=== PATIENT | male | born 1940 | race Caucasian/White ===

== ENCOUNTER 2016-11-17 14:16 | Emergency (ER) | payer OTHER ==
--- NOTE | 2016-11-17 14:37 | EDPHY ---
H & P Stated Complaint: CP sob & dizzy for 3 wks Time Seen by Provider: 11/17/16 14:33 HPI/ROS: HPI CHIEF COMPLAINT: [ ] HISTORY OF PRESENT ILLNESS: [Need 4: Location, Duration, Severity, Quality, Context, Timing Modifying Factors, Associated S&S] Past Medical History: Past Surgical History: Social History: Family History: ROS REVIEW OF SYSTEMS: A comprehensive 10 point review of systems is otherwise negative aside from elements mentioned in the history of present illness. Exam Constitutional triage nursing summary reviewed, vital signs reviewed, awake/ alert. Eyes normal conjunctivae and sclera, EOMI, PERRLA. HENT normal inspection, atraumatic, moist mucus membranes, no epistaxis, neck supple/ no meningismus, no raccoon eyes. Respiratory clear to auscultation bilaterally, normal breath sounds, no respiratory distress, no wheezing. Cardiovascular rate normal, regular rhythm, no murmur, no edema, distal pulses normal. Gastrointestinal soft, non-tender, no rebound, no guarding, normal bowel sounds, no distension, no pulsatile mass. Genitourinary no CVA tenderness. Musculoskeletal no midline vertebral tenderness, full range of motion, no calf swelling, no tenderness of extremities, no meningismus, good pulses, neurovascularly intact. Skin pink, warm, & dry, no rash, skin atraumatic. Neurologic awake, alert and oriented x 3, AAOx3, moves all 4 extremities equally, motor intact, sensory intact, CN II-XII intact, normal cerebellar, normal vision, normal speech. Psychiatric normal mood/affect. Heme/Lymph/Immune no lymphadenopathy. Differential Diagnosis: Medical Decision Making: Re-evaluation: Source: Patient - Personal History Current Tetanus/Diphtheria Vaccine: Yes Current Tetanus Diphtheria and Acellular Pertussis (TDAP): Yes Tetanus Vaccine Date: < 10 years - Medical/Surgical History Hx Asthma: No Hx Chronic Respiratory Disease: No Hx Diabetes: Yes Hx Cardiac Disease: Yes Hx Renal Disease: No Hx Cirrhosis: No Hx Alcoholism: No Hx HIV/AIDS: No Hx Splenectomy or Spleen Trauma: No Other PMH: BACK SURGERIES, HTN, NERVE DAMAGE, CHRONIC UTIS. neurogenic bladder , DAVI, CAD. DM, spinal stenosis - Social History Smoking Status: Former smoker Constitutional: Initial Vital Signs Temperature (C) 36.5 C 11/17/16 14:24 Heart Rate 85 11/17/16 14:24 Respiratory Rate 16 07/18/17 14:24 Blood Pressure 154/94 H 11/17/16 14:24 O2 Sat (%) 95 11/17/16 14:24 O2 Delivery Mode Room Air Allergies/Adverse Reactions: No Known Allergies Allergy (Verified 03/26/16 11:38) Home Medications: Medication Instructions Recorded Aspirin [Aspirin 81mg (*)] 162 mg PO DAILY 06/12/14 Lisinopril/Hctz 20/12.5MG 1 tab PO DAILY 06/12/14 [Zestoretic/Prinzide 20/12.5MG (*)] Metoprolol Succinate Xr [Toprol Xl 25 mg PO DAILY@18 06/12/14 25 mg (*)] Simvastatin 40 mg PO HS 06/12/14 glipiZIDE XL [Glucotrol Xl] 5 mg PO DAILY 06/12/14 Diazepam [Valium 5 MG (*)] 5 mg PO DAILY PRN 03/26/16 Pantoprazole Sodium [Protonix 40mg 40 mg PO DAILY@03/26/16 (*)] Sulfamethox/Tmp 800/160 mg 1 tab PO BID PRN 03/26/16 [Bactrim DS] oxyCODONE IR [Oxycodone Ir (*)] 15 mg PO BID@03/26/16 Acetaminophen [Tylenol 325mg (*)] 650 mg PO Q4HRS PRN #0 tab 03/27/16 Departure - Departure Referrals: Milan Muir MD [Primary Care Provider] - As per Instructions
[2016-11-17] MEDS ORDERED: NS 1,000 ML IV ONE (14:38)
--- NOTE | 2016-11-17 14:42 | CPEKG ---
Heart Rate: 93 RR Interval: 645 P-R Interval: 176 QRSD Interval: 86 QT Interval: 348 QTC Interval: 433 P [place]: 74 QRS [place]: 22 T Wave [place]: 66 EKG Severity - BORDERLINE ECG - EKG Impression: SINUS RHYTHM EKG Impression: PROBABLE LEFT ATRIAL ABNORMALITY Electronically Signed By: Denny López 17-Nov-2016 14:47:16
[2016-11-17 14:46] LABS: % IMMATURE GRANULYOCYTES 0.1 % (0.0-1.1); ABSOLUTE IMMATURE GRANULOCYTES 0.01 10^3/uL (0.00-0.10); ADD DIFF? NO; ADD MORPH? NO; ADD SCAN? NO; ATYPICAL LYMPHOCYTE FLAG 10 (0-99); FRAGMENT RBC FLAG 0 (0-99); HEMATOCRIT 43.5 % (40.0-51.0); HEMOGLOBIN 14.9 g/dL (13.7-17.5); LEFT SHIFT FLG 0 (0-99); LIPEMIA HEMOLYSIS FLAG 90 (0-99); MEAN CELL HEMOGLOBIN 31.3 pg (27.9-34.1); MEAN CELL HEMOGLOBIN CONCENTR. 34.3 g/dL (32.4-36.7); MEAN CELL VOLUME 91.4 fL (81.5-99.8); MEAN PLATELET VOLUME 9.8 fL (8.7-11.7); PLATELET CLUMPS FLAG 0 (0-99); PLATELET COUNT 236 10^3/uL (150-400); RED BLOOD CELL COUNT 4.76 10^6/uL (4.40-6.38); RED CELL DISTRIBUTION WIDTH 13.2 % (11.5-15.2)
[2016-11-17] MEDS ORDERED: ASPIRIN 81 MG CHEWABLE TAB PO ONE (14:46)
--- NOTE | 2016-11-17 14:46 | EDPHY ---
H & P Time Seen by Provider: 11/17/16 14:33 HPI/ROS: CHIEF COMPLAINT: Chest tightness HISTORY OF PRESENT ILLNESS: Patient had cardiac stenting [address] Russell and tells me that over the past 3 weeks the symptoms that preceded his stent have all reoccurred. He describes increasing fatigue and being tired. He feels dizzy frequently with a feeling of presyncope when he walks and actually fell down a couple weeks ago. He is short of breath worse at night and has had some intermittent chest tightness last week that resolved with 2 nitroglycerin. None for the last 5 days. Primarily here in the emergency department he is concerned that he was having chest tightness last week but now really feels just very tired and fatigued. Not associated with any focal weakness or headache. Symptoms moderate. 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 No dysuria or hematuria. A comprehensive 10 point review of systems is otherwise negative aside from elements mentioned in the history of present illness. PAST MEDICAL HISTORY: Coronary stenting as noted above, 3 back surgeries, hypertension, sleep apnea, diabetes, spinal stenosis. Catheterization report by Dr. Russell reviewed by myself from 03/30/15, negative angiogram for new stenosis. Social history: Primary care Otis Muir, here with , nonsmoker General Appearance: Alert and conversant, cooperative. Eyes: No scleral icterus. ENT, Mouth: Normal mucous membranes. Respiratory: Normal respiratory effort, breath sounds equal, lungs are clear to auscultation. Cardiovascular: Regular rate and rhythm. No murmur. Gastrointestinal: Abdomen is soft and non tender. Neurological: Alert and oriented, conversant, follows commands. Normal speech. Able to move all extremities, sensation and sensation intact to light touch. Skin: Warm and dry, no rashes. Musculoskeletal: No peripheral edema and no joint swelling. No calf tenderness. Psychiatric: Not agitated. Emergency Department course/MDM: Symptoms concerning for being identical to his pre stent symptoms from a decade ago. EKG does not show acute changes. Oral aspirin, chest x-ray and labs to include troponin and D-dimer. Pretest clinical likelihood of pulmonary embolism is low. 1555: Discussed with Dr. Russell. Recommends discharge with office follow-up in regards to his cardiac risk. Urinalysis reviewed and is positive for white blood cells and bacteria. The patient tells me that he typically gets urinary tract infections without symptoms, and will often dipstick test his urine at home. Usually he is dipstick negative. When he is positive his primary care physician will prescribe him Bactrim which he tolerates well and always seems to clear it up. In reviewing his previous urine cultures including 06/12/2014 and 05/07/2014 he has had E coli which is resistant to cephalosporins and Macrodantin but is sensitive to Bactrim. Prescription for Bactrim, urine culture sent. Smoking Status: Former smoker Constitutional: Initial Vital Signs Temperature (C) 36.5 C 11/17/16 14:24 Heart Rate 85 11/17/16 14:24 Respiratory Rate 16 11/17/16 14:24 Blood Pressure 154/94 H 11/17/16 14:24 O2 Sat (%) 95 11/17/16 14:24 O2 Delivery Mode Room Air Allergies/Adverse Reactions: No Known Allergies Allergy (Verified 03/26/16 11:38) Home Medications: Medication Instructions Recorded Aspirin [Aspirin 81mg (*)] 162 mg PO DAILY 06/12/14 Lisinopril/Hctz 20/12.5MG 1 tab PO DAILY 06/12/14 [Zestoretic/Prinzide 20/12.5MG (*)] Metoprolol Succinate Xr [Toprol Xl 25 mg PO DAILY@18 06/12/14 25 mg (*)] Simvastatin 40 mg PO HS 06/12/14 glipiZIDE XL [Glucotrol Xl] 5 mg PO DAILY 06/12/14 Diazepam [Valium 5 MG (*)] 5 mg PO DAILY PRN 03/26/16 Pantoprazole Sodium [Protonix 40mg 40 mg PO DAILY@03/26/16 (*)] Sulfamethox/Tmp 800/160 mg 1 tab PO BID PRN 03/26/16 [Bactrim DS] oxyCODONE IR [Oxycodone Ir (*)] 15 mg PO BID@03/26/16 Acetaminophen [Tylenol 325mg (*)] 650 mg PO Q4HRS PRN #0 tab 03/27/16 Sulfamethox/Tmp 800/160 mg 1 tab PO BID@1000,2200 #20 tab 11/17/16 [Bactrim Ds] Medical Decision Making - Diagnostics EKG Interpretation: 12-lead EKG interpreted by me; official reading is in trace master. My interpretation is sinus rhythm rate 93 with left atrial abnormality and no acute ischemic changes. Imaging Results: Imaging Impressions Chest X-Ray 11/17/16 14:42 Impression: Normal chest. Differential Diagnosis: Differential diagnosis considered for chest pain including but not limited to myocardial ischemia, aortic dissection, pericarditis, pulmonary embolus, chest wall pain, pleural inflammation and pulmonary infectious causes. - Data Points Laboratory Results: Laboratory Results 11/17/16 14:38 11/17/16 14:38 11/17/16 11/17/16 11/17/16 15:46 14:38 14:38 WBC RBC Hgb Hct MCV MCH MCHC RDW Plt Count MPV Neut % (Auto) Lymph % (Auto) [place] % (Auto) Eos % (Auto) Baso % (Auto) Nucleat RBC Rel Count Absolute Neuts (auto) Absolute Lymphs (auto) Absolute Monos (auto) Absolute Eos (auto) Absolute Basos (auto) Absolute Nucleated RBC Immature Gran % Immature Gran # D-Dimer 0.36 ug/mLFEU ug/mLFEU (0.00-0.50) Sodium 140 mEq/L mEq/L (134-144) Potassium 4.3 mEq/L mEq/L (3.5-5.2) Chloride 103 mEq/L mEq/L (97-110) Carbon Dioxide 22 mEq/l mEq/l (22-31) Anion Gap 15 mEq/L mEq/L (8-16) BUN 22 mg/dL mg/dL (7-23) Creatinine 1.1 mg/dL mg/dL (0.7-1.3) Estimated GFR > 60 Glucose 183 mg/dL H mg/dL (70-100) Calcium 9.9 mg/dL mg/dL (8.5-10.4) Troponin I < 0.012 ng/mL ng/mL (0-0.034) Urine Color PALE YELLOW Urine Appearance HAZY Urine pH 5.0 (5.0-7.5) Ur Specific [place] 1.009 (1.002-1.030) Urine Protein NEGATIVE (NEGATIVE) Urine Ketones NEGATIVE (NEGATIVE) Urine Blood 2+ H (NEGATIVE) Urine Nitrate NEGATIVE (NEGATIVE) Urine Bilirubin NEGATIVE (NEGATIVE) Urine Urobilinogen NEGATIVE EU EU (0.2-1.0) Ur Leukocyte Esterase 2+ H (NEGATIVE) Urine RBC 3-5 /hpf H /hpf (0-3) Urine WBC 5-10 /hpf H /hpf (0-3) Ur Epithelial Cells TRACE /lpf /lpf (NONE-1+) Urine Bacteria TRACE /hpf H /hpf (NONE SEEN) Urine Mucus TRACE /lpf /lpf (NONE-1+) Urine Glucose NEGATIVE (NEGATIVE) 11/17/16 14:38 WBC 6.82 10^3/uL 10^3/uL (3.80-9.50) RBC 4.76 10^6/uL 10^6/uL (4.40-6.38) Hgb 14.9 g/dL g/dL (13.7-17.5) Hct 43.5 % % (40.0-51.0) MCV 91.4 fL fL (81.5-99.8) MCH 31.3 pg pg (27.9-34.1) MCHC 34.3 g/dL g/dL (32.4-36.7) RDW 13.2 % % (11.5-15.2) Plt Count 236 10^3/uL 10^3/uL (150-400) MPV 9.8 fL fL (8.7-11.7) Neut % (Auto) 60.8 % % (39.3-74.2) Lymph % (Auto) 25.2 % % (15.0-45.0) [place] % (Auto) 12.3 % % (4.5-13.0) Eos % (Auto) 0.9 % % (0.6-7.6) Baso % (Auto) 0.7 % % (0.3-1.7) Nucleat RBC Rel Count 0.0 % % (0.0-0.2) Absolute Neuts (auto) 4.14 10^3/uL 10^3/uL (1.70-6.50) Absolute Lymphs (auto) 1.72 10^3/uL 10^3/uL (1.00-3.00) Absolute Monos (auto) 0.84 10^3/uL H 10^3/uL (0.30-0.80) Absolute Eos (auto) 0.06 10^3/uL 10^3/uL (0.03-0.40) Absolute Basos (auto) 0.05 10^3/uL 10^3/uL (0.02-0.10) Absolute Nucleated RBC 0.00 10^3/uL 10^3/uL (0-0.01) Immature Gran % 0.1 % % (0.0-1.1) Immature Gran # 0.01 10^3/uL 10^3/uL (0.00-0.10) D-Dimer Sodium Potassium Chloride Carbon Dioxide Anion Gap BUN Creatinine Estimated GFR Glucose Calcium Troponin I Urine Color Urine Appearance Urine pH Ur Specific [place] Urine Protein Urine Ketones Urine Blood Urine Nitrate Urine Bilirubin Urine Urobilinogen Ur Leukocyte Esterase Urine RBC Urine WBC Ur Epithelial Cells Urine Bacteria Urine Mucus Urine Glucose Medications Given: Discontinued Medications Aspirin (Aspirin) 324 mg PO EDNOW ONE Stop: 11/17/16 14:39 Last Admin: 11/17/16 14:53 Dose: Not Given Aspirin (Aspirin) 324 mg PO EDNOW ONE Stop: 11/17/16 14:47 Last Admin: 11/17/16 15:03 Dose: 324 mg Sodium Chloride (Ns) 1,000 mls @ 0 mls/hr IV ONCE ONE; Wide Open PRN Reason: Protocol Stop: 11/17/16 14:39 Last Admin: 11/17/16 14:51 Dose: Not Given Departure - Departure Disposition: Home, Routine, Self-Care Clinical Impression: Fatigue Qualifiers: Fatigue type: unspecified Qualified Code(s): R53.83 - Other fatigue Urinary tract infection Qualifiers: Urinary tract infection type: acute cystitis Hematuria presence: without hematuria Qualified Code(s): N30.00 - Acute cystitis without hematuria Condition: Good Instructions: Urinary Tract Infection in Men (ED), Weakness (ED) Additional Instructions: Return for worsening symptoms. Your registered dental hygienist will call you for follow-up this week Referrals: Milan Muir MD [Primary Care Provider] - As per Instructions Rufino Russell MD [Medical Doctor] - As per Instructions Prescriptions: Sulfamethox/Tmp 800/160 mg [Bactrim Ds] 1 tab PO BID@1000,2200 #20 tab
[2016-11-17] MEDS: ASPIRIN 81 MG CHEWABLE TAB PO ONE ×2 (14:50→14:53)
[2016-11-17 15:07] LABS: ANION GAP 15 mEq/L (8-16); CALCIUM 9.9 mg/dL (8.5-10.4); CARBON DIOXIDE 22 mEq/l (22-31); CHLORIDE 103 mEq/L (97-110); CREATININE 1.1 mg/dL (0.7-1.3); GLOMERULAR FILTRATION RATE > 60; GLUCOSE 183 mg/dL (70-100); POTASSIUM 4.3 mEq/L (3.5-5.2); SODIUM 140 mEq/L (134-144)
[2016-11-17 15:17] LABS: TROPONIN I < 0.012 ng/mL (0-0.034)
[2016-11-17 16:02] LABS: COLOR PALE YELLOW; LEUKOCYTE ESTERASE,URINE 2+ (NEGATIVE); NITRITE,URINE NEGATIVE (NEGATIVE)
[2016-11-17 16:29] LABS: BACTERIA TRACE /hpf (NONE SEEN); MUCUS TRACE /lpf (NONE-1+)
[2016-11-17 16:37] VITALS: BP 140/90; PULSE 82; RESP 18; TEMP 98.1; O2SAT 94
== END 2016-11-17 16:37 | disposition home or self-care (01) ==
DX: N30.00 Acute cystitis without hematuria (principal); I10 Essential (primary) hypertension; E11.9 Type 2 diabetes mellitus without complications; B96.89 Other specified bacterial agents as the cause of diseases classified elsewhere; Z79.82 Long term (current) use of aspirin; Z87.891 Personal history of nicotine dependence; Z95.5 Presence of coronary angioplasty implant and graft

== ENCOUNTER 2016-11-30 15:16 | Emergency (ER) | payer OTHER ==
--- NOTE | 2016-11-30 15:28 | CPEKG ---
Heart Rate: 94 RR Interval: 638 P-R Interval: 212 QRSD Interval: 82 QT Interval: 372 QTC Interval: 466 P [place]: 61 QRS [place]: 5 T Wave [place]: 59 EKG Severity - ABNORMAL ECG - EKG Impression: SINUS RHYTHM EKG Impression: VENTRICULAR PREMATURE COMPLEX EKG Impression: CONSIDER POSTERIOR INFARCT Electronically Signed By: Nuria Zavala 30-Nov-2016 20:58:24
[2016-11-30 15:54] LABS: % IMMATURE GRANULYOCYTES 0.4 % (0.0-1.1); ABSOLUTE IMMATURE GRANULOCYTES 0.04 10^3/uL (0.00-0.10); ADD DIFF? NO; ADD MORPH? NO; ADD SCAN? NO; ATYPICAL LYMPHOCYTE FLAG 10 (0-99); FRAGMENT RBC FLAG 0 (0-99); HEMOGLOBIN 14.6 g/dL (13.7-17.5); LEFT SHIFT FLG 0 (0-99); LIPEMIA HEMOLYSIS FLAG 90 (0-99); MEAN CELL HEMOGLOBIN 30.6 pg (27.9-34.1); MEAN CELL VOLUME 90.1 fL (81.5-99.8); MEAN PLATELET VOLUME 9.9 fL (8.7-11.7); PLATELET CLUMPS FLAG 0 (0-99); PLATELET COUNT 221 10^3/uL (150-400); RED BLOOD CELL COUNT 4.77 10^6/uL (4.40-6.38); RED CELL DISTRIBUTION WIDTH 13.1 % (11.5-15.2)
--- NOTE | 2016-11-30 15:58 | EDPHY ---
H & P Stated Complaint: chest pain today, back pain chronic, bladder pain and dizziness since july Time Seen by Provider: 11/30/16 15:35 HPI/ROS: Chief Complaint: Lightheaded, short of breath, headache, hypertension HPI: 76-year-old male with a history of coronary artery disease and hypertension is complaining of a headache, lightheadedness, feeling flushed which started about 10:00 a.m. this morning. He states that last night he has head became feeling hot and had a mild headache. At that time his blood pressure was 180/90. He sat in his chair and felt better. This morning at 10: 00 a.m. he says his ankle started feeling numb and he felt like he was going to fall but did not. Again at noon his head started feeling flushed he felt some shortness of breath and some lightheadedness. At that time his blood pressure was 190/85. He has been compliant with his medications. Denies any substernal chest pain but has have a little bit left-sided chest pain and feels that he can not get catch his breath. He states he has been having worsening shortness of breath the last 3 or 4 months but for the last 2 days it is been worse to the point that he feels like he is unable to ever catch his breath. He is lightheaded. He is scheduled for a CT scan of his head today because he has been having dizziness but was unable to go to have it done. Denies any fevers or chills. Does have a history of chronic back pain for which when he has exacerbations of pain he has to straight cath. States at 1:30 p.m. this afternoon he self cath and had flow for about a minute. He then removed. An hour later he felt the urge to void again put in a catheter and had a 1 minutes 45 seconds. He has been having increasing urgency. No fevers or chills. No abdominal pain. No nausea or vomiting. ROS: 10 point Review of Systems is negative except as noted in the HPI. PMH: Coronary artery disease, hypertension, diabetes, chronic back pain Medications: Lisinopril/hydrochlorothiazide Simvastatin Metoprolol Glipizide Pantoprazole Aspirin could Oxycodone Allergies: Metformin Social History: No smoking, no alcohol, no recreational drug use Family History: Father had a CVA and at 72, also had diabetes. Mother at 76 for coronary artery disease. Physical Exam: Gen: Awake, Alert, anxious appearing HEENT: Nose: no rhinorrhea Eyes: PERRLA, EOMI Mouth: Moist mucosa Neck: Supple, no JVD Chest: nontender, lungs clear to auscultation Heart: S1, S2 normal, no murmur Abd: Soft, non-tender, no guarding Back: no CVA tenderness, no midline tenderness Ext: 1+ foot edema, non-tender Skin: no rash Neuro: CN II-XII intact, Sensation grossly intact, Strength 5/5 in bilateral upper and lower extremities - Personal History Current Tetanus Diphtheria and Acellular Pertussis (TDAP): Yes Tetanus Vaccine Date: < 10 years - Medical/Surgical History Hx Asthma: No Hx Chronic Respiratory Disease: No Hx Diabetes: Yes Hx Cardiac Disease: Yes Hx Renal Disease: No Hx Cirrhosis: No Hx Alcoholism: No Hx HIV/AIDS: No Hx Splenectomy or Spleen Trauma: No Other PMH: BACK SURGERIES, HTN, NERVE DAMAGE, CHRONIC UTIS. neurogenic bladder , DAVI, CAD. DM, spinal stenosis - Social History Smoking Status: Former smoker Constitutional: Initial Vital Signs Heart Rate 705 H 11/30/16 15:27 Respiratory Rate 18 11/30/16 15:27 Blood Pressure 175/81 H 11/30/16 15:27 O2 Sat (%) 97 11/30/16 15:27 O2 Delivery Mode Room Air Allergies/Adverse Reactions: metformin Allergy (Verified 11/30/16 15:26) Home Medications: Medication Instructions Recorded Aspirin [Aspirin 81mg (*)] 162 mg PO DAILY 06/12/14 Lisinopril/Hctz 20/12.5MG 1 tab PO DAILY 06/12/14 [Zestoretic/Prinzide 20/12.5MG (*)] Metoprolol Succinate Xr [Toprol Xl 25 mg PO DAILY@18 06/12/14 25 mg (*)] Simvastatin 40 mg PO HS 06/12/14 glipiZIDE XL [Glucotrol Xl] 5 mg PO DAILY 06/12/14 Diazepam [Valium 5 MG (*)] 5 mg PO DAILY PRN 03/26/16 Pantoprazole Sodium [Protonix 40mg 40 mg PO DAILY@03/26/16 (*)] oxyCODONE IR [Oxycodone Ir (*)] 15 mg PO BID@14,21 03/26/16 Acetaminophen [Tylenol 325mg (*)] 650 mg PO Q4HRS PRN #0 tab 03/27/16 Medical Decision Making - Diagnostics Imaging Results: Imaging Impressions Chest X-Ray 11/30/16 15:50 Impression: Negative chest. Imaging: I viewed and interpreted images myself ED Course/Re-evaluation: 76-year-old male with multiple complaints including some lightheadedness. Is some flushing. Some headache. All these are associated with his blood pressure being high. He has similar episodes in the past and admitted to this hospital in May and was seen here 2 weeks ago. Those workups were unremarkable. Today his blood pressure was 170 systolic here. His ECG is unremarkable. His blood work is negative. His urinalysis is negative. Patient states that when he had a similar episode in the past he was given Valium which brought him almost immediate relief. He has no focal neurologic deficits at this time. No central chest pain. Troponin is negative. He has no headache or any other findings suggestive of end-organ damage secondary to his hypertension. Blood pressure came down to 158 without treatment here. Will give small dose of Ativan here and reassess. At this time I do not see any findings to suggest that he needs further inpatient workup. He has an appoint with his urologist tomorrow. He is scheduled for a CT scan of his head later this week. He has no other headache or any other findings to indicate emergent CT scan at this point. If patient is improved and ambulating plan will be to discharge. He will follow up with Dr. Russell as an outpatient. He has been encouraged to return to the emergency department any time for any concerns. Patient is feeling better after Ativan. He has a negative workup at this time. Plan will be for discharge. He has an appointment with his urologist tomorrow. Will follow with primary care physician and his language interpreter for further evaluation of his hypertension. - Data Points Laboratory Results: Laboratory Results 11/30/16 15:45 11/30/16 15:45 11/30/16 11/30/16 11/30/16 16:50 15:45 15:45 WBC 10.48 10^3/uL H 10^3/uL (3.80-9.50) RBC 4.77 10^6/uL 10^6/uL (4.40-6.38) Hgb 14.6 g/dL g/dL (13.7-17.5) Hct 43.0 % % (40.0-51.0) MCV 90.1 fL fL (81.5-99.8) MCH 30.6 pg pg (27.9-34.1) MCHC 34.0 g/dL g/dL (32.4-36.7) RDW 13.1 % % (11.5-15.2) Plt Count 221 10^3/uL 10^3/uL (150-400) MPV 9.9 fL fL (8.7-11.7) Neut % (Auto) 76.7 % H % (39.3-74.2) Lymph % (Auto) 13.4 % L % (15.0-45.0) [place] % (Auto) 8.8 % % (4.5-13.0) Eos % (Auto) 0.3 % L % (0.6-7.6) Baso % (Auto) 0.4 % % (0.3-1.7) Nucleat RBC Rel Count 0.0 % % (0.0-0.2) Absolute Neuts (auto) 8.05 10^3/uL H 10^3/uL (1.70-6.50) Absolute Lymphs (auto) 1.40 10^3/uL 10^3/uL (1.00-3.00) Absolute Monos (auto) 0.92 10^3/uL H 10^3/uL (0.30-0.80) Absolute Eos (auto) 0.03 10^3/uL 10^3/uL (0.03-0.40) Absolute Basos (auto) 0.04 10^3/uL 10^3/uL (0.02-0.10) Absolute Nucleated RBC 0.00 10^3/uL 10^3/uL (0-0.01) Immature Gran % 0.4 % % (0.0-1.1) Immature Gran # 0.04 10^3/uL 10^3/uL (0.00-0.10) Sodium 140 mEq/L mEq/L (134-144) Potassium 4.1 mEq/L mEq/L (3.5-5.2) Chloride 106 mEq/L mEq/L (97-110) Carbon Dioxide 19 mEq/l L mEq/l (22-31) Anion Gap 15 mEq/L mEq/L (8-16) BUN 17 mg/dL mg/dL (7-23) Creatinine 0.9 mg/dL mg/dL (0.7-1.3) Estimated GFR > 60 Glucose 162 mg/dL H mg/dL (70-100) Calcium 10.0 mg/dL mg/dL (8.5-10.4) Total Bilirubin 0.7 mg/dL mg/dL (0.1-1.4) Conjugated Bilirubin 0.3 mg/dL mg/dL (0.0-0.5) Unconjugated Bilirubin 0.4 mg/dL mg/dL (0.0-1.1) AST 20 IU/L IU/L (17-59) ALT 32 IU/L IU/L (21-72) Alkaline Phosphatase 72 IU/L IU/L (38-126) Troponin I < 0.012 ng/mL ng/mL (0-0.034) Total Protein 7.9 g/dL g/dL (6.3-8.2) Albumin 4.8 g/dL g/dL (3.5-5.0) Lipase 57.0 IU/L IU/L (23-300) Urine Color PALE YELLOW Urine Appearance CLEAR Urine pH 5.0 (5.0-7.5) Ur Specific [place] 1.004 (1.002-1.030) Urine Protein NEGATIVE (NEGATIVE) Urine Ketones NEGATIVE (NEGATIVE) Urine Blood 2+ H (NEGATIVE) Urine Nitrate NEGATIVE (NEGATIVE) Urine Bilirubin NEGATIVE (NEGATIVE) Urine Urobilinogen NEGATIVE EU EU (0.2-1.0) Ur Leukocyte Esterase NEGATIVE (NEGATIVE) Urine RBC 1-3 /hpf /hpf (0-3) Urine WBC 1-3 /hpf /hpf (0-3) Ur Epithelial Cells TRACE /lpf /lpf (NONE-1+) Urine Glucose NEGATIVE (NEGATIVE) Medications Given: Discontinued Medications Lorazepam (Ativan Injection) 1 mg IVP EDNOW ONE Stop: 11/30/16 17:33 Last Admin: 11/30/16 17:46 Dose: 1 mg Morphine Sulfate (Morphine) 4 mg IVP EDNOW ONE Stop: 11/30/16 16:14 Last Admin: 11/30/16 16:15 Dose: 4 mg Departure - Departure Disposition: Home, Routine, Self-Care Clinical Impression: Hypertension Condition: Good Instructions: Hypertension (ED) Additional Instructions: Follow up with your primary care physician in 2-3 days. Follow up with your urologist tomorrow as scheduled. Follow up with your language interpreter in 3-4 days, call for next available appointment. Return to the emergency department for worsening headache, chest pain, worsening difficulty breathing, abdominal pain, fevers, chills, or any other concerns. Referrals: Milan Muir MD [Primary Care Provider] - As per Instructions Rufino Russell MD [Medical Doctor] - As per Instructions
[2016-11-30 16:03] LABS: ALANINE AMINOTRANSFERASE 32 IU/L (21-72); ALBUMIN 4.8 g/dL (3.5-5.0); ALKALINE PHOSPHATASE 72 IU/L (38-126); ANION GAP 15 mEq/L (8-16); ASPARTATE AMINOTRANSFERASE 20 IU/L (17-59); BILIRUBIN,TOTAL 0.7 mg/dL (0.1-1.4); BILIRUBIN-CONJUGATED 0.3 mg/dL (0.0-0.5); BILIRUBIN-UNCONJUGATED 0.4 mg/dL (0.0-1.1); CARBON DIOXIDE 19 mEq/l (22-31); CHLORIDE 106 mEq/L (97-110); CREATININE 0.9 mg/dL (0.7-1.3); GLOMERULAR FILTRATION RATE > 60; GLUCOSE 162 mg/dL (70-100); POTASSIUM 4.1 mEq/L (3.5-5.2); SODIUM 140 mEq/L (134-144); TOTAL PROTEIN 7.9 g/dL (6.3-8.2)
[2016-11-30 16:14] LABS: TROPONIN I < 0.012 ng/mL (0-0.034)
[2016-11-30] MEDS ORDERED: LIDOCAINE 2% JELLY 20 ML (UROJECT) ONE (16:32)
[2016-11-30 17:05] LABS: COLOR PALE YELLOW; LEUKOCYTE ESTERASE,URINE NEGATIVE (NEGATIVE); NITRITE,URINE NEGATIVE (NEGATIVE)
[2016-11-30] MEDS ORDERED: LORazepam 2 MG/ML INJ IVP ONE (17:32)
[2016-11-30 18:53] VITALS: BP 155/93; PULSE 105; RESP 16; TEMP 97.9; O2SAT 94
== END 2016-11-30 18:47 | disposition home or self-care (01) ==
DX: I10 Essential (primary) hypertension (principal); I25.10 Atherosclerotic heart disease of native coronary artery without angina pectoris; E11.9 Type 2 diabetes mellitus without complications; Z79.82 Long term (current) use of aspirin; Z87.891 Personal history of nicotine dependence
CPT/HCPCS: 71020; 93005; 96374; 96375; 99285; J2060

== ENCOUNTER → 2017-05-18 | Outpatient (CLI) | payer OTHER | LOC: BHFA 14:00 | PROVIDERS: ATTEND Internal Medicine Cardiovascular Disease | DX: I25.10 Atherosclerotic heart disease of native coronary artery without angina pectoris (principal) ==